=== PATIENT | male | born 1995 | race Caucasian/White ===

== ENCOUNTER 2021-05-24 14:45 | Observation (INO) | payer OTHER ==
[~2021-05-24] VITALS: Ht 170.2 cm; Wt 90.7 kg
[2021-05-24 15:00] VITALS: BP 133/80
[2021-05-24] MEDS ORDERED: EXCEDRIN MIGRA1 EAC1 PO (15:03)
[2021-05-24 15:26] LABS: ABSOLUTE BASOPHILS 0.1 thou/uL (0.0-0.2); ABSOLUTE EOSINOPHILS 0.1 thou/uL (0.0-0.7); ABSOLUTE LYMPHOCYTES 2.2 thou/uL (0.8-5.3); ABSOLUTE MONOCYTES 0.6 thou/uL (0.0-1.2); ABSOLUTE NEUTROPHILS 6.8 thou/uL (1.6-8.1); BASOPHILS 0.7 %; EOSINOPHILS 0.8 %; HEMATOCRIT 49.1 % (42.0-52.0); HEMOGLOBIN 16.9 gm/dL (14.0-18.0); LYMPHOCYTES 22.5 %; MCH 31.5 pg (26.0-34.0); MCHC 34.4 g/dL (28.0-37.0); MCV 91.6 fL (80.0-100.0); MONOCYTES 6.1 %; MPV 7.8 fl. (7.2-11.1); NUCLEATED RBCS 0 /100WBC; PLATELET COUNT* 205 thou/uL (150-400); POLYS 69.9 %; RBC 5.36 mil/uL (4.50-6.00); RDW-CV 13.1 % (10.5-14.5); WBC 9.7 thou/uL (4.0-11.0)
[2021-05-24 15:37] LABS: CALCIUM 8.7 mg/dL (8.5-10.1); CREATININE 1.3 mg/dL (0.6-1.3); POTASSIUM 3.9 mmol/L (3.5-5.1)
[2021-05-24 15:41] LABS: TOTAL BILIRUBIN 0.3 mg/dL (<0.1-1.0); TOTAL PROTEIN 7.3 g/dL (6.4-8.2)
[2021-05-24 16:27] LABS: URINE BILIRUBIN NEGATIVE (Negative); URINE BLOOD NEGATIVE (Negative); URINE CLARITY CLEAR; URINE COLOR YELLOW; URINE GLUCOSE-RANDOM NEGATIVE (Negative); URINE KETONES NEGATIVE (Negative); URINE LEUKOCYTES-REFLEX NEGATIVE (Negative); URINE NITRITE-REFLEX NEGATIVE (Negative); URINE PROTEIN NEGATIVE (Negative); URINE UROBILINOGEN 0.2 E.U./dl (0.2-1.0)
[2021-05-24 17:23] VITALS: BP 115/69
[2021-05-24 19:45] VITALS: BP 107/59
[2021-05-25 00:17] VITALS: BP 187/64
--- NOTE | 2021-05-25 04:09 | NUR ---
PT ARRIVED TO THE UNIT FROM PACU AT ABOUT 1945. A&O X 4. LAP SITES C/D/I. SNACKS GIVEN PER PT REQUEST. DENIED N/V. NORCO GIVEN X 1 FOR PAIN. UP INDEPENDENTLY IN ROOM. CALL LIGHT WITHIN REACH. WILL CONTINUE TO MONITOR.
[2021-05-25 05:24] VITALS: BP 102/46
[2021-05-25 08:00] VITALS: BP 113/56
[2021-05-25 10:30] VITALS: BP 113/56
--- NOTE | 2021-05-25 12:24 | NUR ---
PATIENT DISCHARGED AT THIS TIME VIA WHEELCHAIR ACCOMPANIED BY STAFF TO PRIVATE VEHICLE. IV DC'D, COTTON BALL AND TAPE PLACED TO SITE. PERSONAL ITEMS GATHERED AND SENT WITH PATIENT. STERI-STRIPS TO ABDOMEN C/D/I. DISCHARGE INSTRUCTIONS REVIEWED, ACKNOWLEDGED UNDERSTANDING. ALL QUESTIONS AND CONCERNS ADDRESSED.
[2021-05-25 12:26] VITALS: BP 113/56
--- NOTE | 2021-05-28 11:03 | OP ---
[facility] [address] [place] [address] OPERATIVE REPORT Name: GUERLINE XIAO Room: [address] Jigar Sims#: [id number] Admission: 05/24/21 Attend Phys: Clem Pearce Discharge: 05/25/21 Date of : 89 Report #: [id number] THIS REPORT FOR: cc: JUANCHO - No family physician/PCP FAM - No family physician/PCP Clem Pearce MD ~ DATE OF SURGERY: 05/24/2021 PREOPERATIVE DIAGNOSIS: Acute appendicitis. POSTOPERATIVE DIAGNOSIS: Acute appendicitis. OPERATION: Laparoscopic appendectomy. SURGEON: Clem Pearce MD ANESTHESIA: General. ESTIMATED BLOOD LOSS: Minimal. SPECIMENS: Appendix. DESCRIPTION OF PROCEDURE: After informed consent was obtained, the patient was brought to the operating room and placed supine. SCDs were placed and working, preoperative antibiotics were administered, general anesthesia was induced. The abdomen was prepped and draped in the usual sterile fashion. A 10 mm incision was made above the umbilicus. Fascia was incised and a trocar was placed. Pneumoperitoneum was established. Right upper quadrant and left lower quadrant 5 mm trocars were placed. The appendix was grasped and retracted anteriorly. I made a window in the mesoappendix with the LigaSure. The mesoappendix was ligated using the LigaSure device. There was excellent hemostasis. Base of the appendix was then ligated using a PDS Endoloop. The appendix was then cut and placed into an Endopouch and removed. The fascia was then closed with a [id number] 0 Vicryl. Skin was closed with 4-0 Monocryl. Incisions were dressed with Steri-Strips. COMPLICATIONS: None. DISPOSITION: The patient was taken to recovery in satisfactory condition. <ELECTRONICALLY SIGNED> By: Clem Pearce MD 05/28/21 1103 [id number] [id number] Pearce MD /nt
--- NOTE | 2021-05-29 15:08 | PATH ---
[address] [address] PATHOLOGY RPT PROCEDURE Name: GUERLINE IXAO Honey Room: [address] Jigar MZach#: [id number] Admission: 05/24/21 Date of : 89 Discharge: 05/25/21 Report #: [id number] Path Case #: [id number] L[facility] Accession Number: [id number] . 01 Material submitted: . appendix - APPENDIX . 01 Clinical history: . LAPAROSCOPIC APPENDECTOMY APPENDICITIS . 02 Diagnosis: Appendix: - Acute appendicitis, periappendicitis and serositis. (ALIYA:norberto; 05/28/2021) S 05/28/2021 1526 Local . 02 Electronically signed: . Kurtis Hoffman MD, Pathologist NPI- [id number] . 01 Gross description: . Fixative: Formalin Labeled: Appendix Appendix length: 7.9 cm Appendix diameter: 0.6 cm Mesoappendix: 5.1 x 2.1 x 0.7 cm Proximal margin: Stapled Serosa: Smooth, chamorro-pink and glistening Cut surface: Chamorro-white cut surface Luminal diameter: 0.4 cm Perforation: No Lesions/abnormalities: None A1 Proximal margin (inked black) and distal tip, bisected A2 Mid appendix ([facility]; 05/27/2021) GZA/GZA 05/27/[address] [place] [address] . 02 Pathologist provided ICD-10: K35.80, K65.8 . 02 CPT . 226400 Specimen Comment: A courtesy copy of this report has been sent to [phone] Specimen Comment: Report sent to Performed at: [address] [id number] MD Johnson Durbin MD Phone: [phone] [address] [address] PATHOLOGY RPT PROCEDURE Name: NINOSKAGUERLINE Honey Room: [address]#: [id number] Admission: 05/24/21 Date of : 89 Discharge: 05/25/21 Report #: [id number] Path Case #: [id number] Performed at: [address] [place], [place] [id number] MD Kurtis Hoffman MD Phone: [phone]
== END 2021-05-25 12:15 | disposition home or self-care (01) ==
LOC: M.SUR 14:45 → M.ERS 14:45 → M.TBA-CV 17:49 → M.3W 20:08
PROVIDERS: Physician Assistant; ADMIT Surgery; ATTEND Surgery
DX: K35.80 Unspecified acute appendicitis (principal); Z79.899 Other long term (current) drug therapy